=== PATIENT | female | born 1990 | race Caucasian/White ===

== ENCOUNTER 2020-12-11 20:35 | Emergency (ER) | payer OTHER ==
[~2020-12-11] VITALS: Ht 152.4 cm; Wt 93.0 kg
[2020-12-11 20:57] VITALS: BP 135/78
--- NOTE | 2020-12-11 21:01 | NUR ---
PT AMBULATED WITH EVEN AND STEADY GAIT TO BED 11
--- NOTE | 2020-12-11 21:20 | NUR ---
PATIENT WITH COMPLAINT OF HEADACHE AND NECK PAIN FOR TWO DAYS. PATIENT STATES SHE HAD ONE EPISODE OF DIZZINESS WHEN SHE WAS AMBULATING. HAS NO HISTORY PRIOR TO THIS. NEUROLOGICAL STATUS WITHIN NORMAL LIMITS ALERT AND ORIENTED X4. STATES LAST MENSTRUAL PERIOD WAS IN MAY 2020 BUT SHE HAS ABNORMAL PERIODS. NO SIGNS OF ACUTE DISTRESS. PMH:PCOS ALLERGIES: NKA
[2020-12-11] MEDS ORDERED: KETOROLAC 30 MG/ML VIAL IM ONE (23:45)
[2020-12-11] MEDS ORDERED: LORazepam 0.5 MG TAB PO ONE (23:45)
[2020-12-11] MEDS ORDERED: diphenhydrAMINE 50 MG/ML VIAL IM ONE (23:45)
[2020-12-11] MEDS ORDERED: PROCHLORPERAZINE 10 MG/2 ML VIAL IM ONE (23:45)
[2020-12-12 00:20] VITALS: BP 101/62
--- NOTE | 2020-12-12 00:26 | NUR ---
Patient discharged with v/s stable. Written and verbal after care instructions given and explained. Patient verbalized understanding. Ambulatory with steady gait. All questions addressed prior to discharge. Advised to follow up with PMD.
== END 2020-12-12 00:26 | disposition home or self-care (01) ==
LOC: MED 20:35
DX: R51.9 Headache, unspecified (principal); F41.0 Panic disorder [episodic paroxysmal anxiety]
CPT/HCPCS: 70450; 81025; 96372; 99284; J0780; J1200; J1885